=== PATIENT | female | born 1950 | race Caucasian/White ===

== ENCOUNTER 2018-07-17 19:58 | Emergency (ER) | payer MEDICARE ==
--- NOTE | 2018-07-17 20:21 | ERPHSYRPT ---
- History of Present Illness Time Seen by Provider: 07/17/18 20:20 Historian: patient Exam Limitations: no limitations Physician History: 68 y/o white female presents with vomiting and diarrhea for a week. pt is unsure why she has these sx. no fever. pt has a h/o nonhodgkins lymphoma with wbc in the range of 1.5. pt also takes magnesium and potassium supplements chronically. pt does not have abd pain. Timing/Duration: week(s) (1) Activities at Onset: none Quality: cramping (mild) Abdominal Pain Onset Location: generalized abdomen Pain Radiation: no radiation Severity of Pain-Max: mild Severity of Pain-Current: none Modifying Factors: Improves With: vomiting Associated Symptoms: diarrhea, loss of appetite, nausea, vomiting Previous symptoms: no prior history Allergies/Adverse Reactions: No Known Drug Allergies Allergy (Unverified 07/17/18 20:12) Home Medications: Carvedilol 1 tab PO BID 07/17/18 [History] Celecoxib 100 mg [celeBREX 100 MG] 1 tab PO DAILY 07/17/18 [History] Duloxetine HCl 1 tab PO DAILY 07/17/18 [History] Furosemide 20 mg [Lasix 20 mg] 1 tab PO BID 07/17/18 [History] Potassium Chloride [K-Dur] 1 tab PO BID 07/17/18 [History] Ropinirole HCl 0.5 mg [Requip 0.5 MG] 1 tab PO DAILY 07/17/18 [History] - Review of Systems Constitutional: No Symptoms Eyes: No Symptoms Ears, Nose, & Throat: No Symptoms Respiratory: No Symptoms Cardiac: No Symptoms Abdominal/Gastrointestinal: Nausea, Vomiting, Diarrhea, No Abdominal Pain Genitourinary Symptoms: No Symptoms Musculoskeletal: No Symptoms Skin: No Symptoms Neurological: No Symptoms Psychological: No Symptoms Endocrine: No Symptoms Hematologic/Lymphatic: No Symptoms Immunological/Allergic: No Symptoms All Other Systems: Reviewed and Negative - Nursing Vital Signs Nursing Vital Signs: Initial Vital Signs Temperature 97.8 F 07/17/18 20:13 Pulse Rate 98 H 07/17/18 20:13 Respiratory Rate 16 07/17/18 20:13 Blood Pressure 203/87 07/17/18 20:13 O2 Sat by Pulse Oximetry 95 07/17/18 20:13 Pain Scale Pain Intensity 0 - Course Nursing assessment & vital signs reviewed: Yes Ordered Tests: Active Orders 24 hr Category Date Time Status IV Insertion STAT Care 07/17/18 20:40 Active AMYLASE Stat Lab 07/17/18 20:45 Completed CBC W DIFF Stat Lab 07/17/18 20:45 Completed CMP Stat Lab 07/17/18 20:45 Completed LIPASE Stat Lab 07/17/18 20:45 Completed Lactic Acid Stat Lab 07/17/18 20:40 Completed UA W/RFX UR CULTURE Stat Lab 07/17/18 22:50 Completed Medication Summary Discontinued Medications Generic Name Dose Route Start Last Admin Trade Name Freq PRN Reason Stop Dose Admin Sodium Chloride 1,000 mls @ 999 mls/hr 07/17/18 20:40 07/17/18 21:53 Sodium Chloride 0.9% 1000 Ml IV 07/17/18 21:40 Infused .Q1H1M STA Infusion Sodium Chloride Confirm 07/17/18 20:45 Sodium Chloride 0.9% 1000 Ml Administered 07/17/18 20:46 Dose 1,000 mls @ ud .ROUTE .STK-MED ONE Sodium Chloride 1,000 mls @ 999 mls/hr 07/17/18 21:57 07/17/18 22:04 Sodium Chloride 0.9% 1000 Ml IV 07/17/18 22:57 999 mls/hr .Q1H1M STA Administration Sodium Chloride Confirm 07/17/18 22:03 Sodium Chloride 0.9% 1000 Ml Administered 07/17/18 22:04 Dose 1,000 mls @ ud .ROUTE .STK-MED ONE Ondansetron HCl 4 mg 07/17/18 20:40 07/17/18 20:51 Zofran 4 Mg/2 Ml Vial IV 07/17/18 20:41 4 mg STAT ONE Administration Ondansetron HCl Confirm 07/17/18 20:45 Zofran 4 Mg/2 Ml Vial Administered 07/17/18 20:46 Dose 4 mg .ROUTE .STK-MED ONE Pantoprazole Sodium 40 mg 07/17/18 20:40 07/17/18 20:51 Protonix 40 Mg Iv IV 07/17/18 20:41 40 mg STAT ONE Administration Pantoprazole Sodium Confirm 07/17/18 20:45 Protonix 40 Mg Iv Administered 07/17/18 20:46 Dose 40 mg IV .STK-MED ONE Lab/Rad Data: Laboratory Result Diagrams 07/17/18 20:45 07/17/18 20:45 Laboratory Results 07/17/18 07/17/18 07/17/18 Range/Units 22:50 20:45 20:45 WBC 2.2 L (4.0-10.5) K/mm3 RBC 4.17 (4.1-5.4) M/mm3 Hgb 12.5 (12.0-16.0) gm/dl Hct 37.8 (35-47) % MCV 90.6 (78-100) fl MCH 30.0 (26-32) pg MCHC 33.1 (32-36) g/dl RDW 14.6 H (11.5-14.0) % Plt Count 184 (150-450) K/mm3 MPV 9.3 (6-9.5) fl Gran % 52.5 (36.0-66.0) % Eos # (Auto) 0.05 (0-0.5) Absolute Lymphs (auto) 0.69 L (1.0-4.6) Absolute Monos (auto) 0.30 (0.0-1.3) Lymphocytes % 30.9 (24.0-44.0) % Monocytes % 13.5 H (0.0-12.0) % Eosinophils % 2.2 (0.00-5.0) % Basophils % 0.9 (0.0-0.4) % Absolute Granulocytes 1.17 L (1.4-6.9) Basophils # 0.02 (0-0.4) Sodium 139 (137-145) mmol/L Potassium 4.1 (3.5-5.1) mmol/L Chloride 106 (98-107) mmol/L Carbon Dioxide 20 L (22-30) mmol/L Anion Gap 16.4 H (5-15) MEQ/L BUN 22 H (7-17) mg/dL Creatinine 1.30 H (0.52-1.04) mg/dL Estimated GFR 43.6 ML/MIN Glucose 180 H (74-106) mg/dL Lactic Acid (0.4-2.0) Calcium 10.0 (8.4-10.2) mg/dL Total Bilirubin 1.10 (0.2-1.3) mg/dL AST 47 H (14-36) U/L ALT 26 (0-35) U/L Alkaline Phosphatase 151 H (38-126) U/L Serum Total Protein 9.2 H (6.3-8.2) g/dL Albumin 4.5 (3.5-5.0) g/dL Amylase 83 (30-110) U/L Lipase 378 H (23-300) U/L Urine Color YELLOW (YELLOW) Urine Appearance SLIGHTLY CLOUDY (CLEAR) Urine pH 5.0 (5-6) Ur Specific [place] 1.009 (1.005-1.025) Urine Protein NEGATIVE (Negative) Urine Ketones NEGATIVE (NEGATIVE) Urine Blood NEGATIVE (0-5) Luke/ul Urine Nitrite NEGATIVE (NEGATIVE) Urine Bilirubin NEGATIVE (NEGATIVE) Urine Urobilinogen NEGATIVE (0-1) mg/dL Ur Leukocyte Esterase NEGATIVE (NEGATIVE) Urine WBC (Auto) NONE (0-5) /HPF Urine RBC (Auto) NONE (0-2) /HPF U Hyaline Cast (Auto) 0-2 (0-2) /LPF U Epithel Cells (Auto) RARE (FEW) /HPF Urine Bacteria (Auto) NONE (NEGATIVE) /HPF Urine Mucus (Auto) SLIGHT (NEGATIVE) /HPF Urine Culture Reflexed NO (NO) Urine Glucose NEGATIVE (NEGATIVE) mg/dL 07/17/18 Range/Units 20:40 WBC (4.0-10.5) K/mm3 RBC (4.1-5.4) M/mm3 Hgb (12.0-16.0) gm/dl Hct (35-47) % MCV (78-100) fl MCH (26-32) pg MCHC (32-36) g/dl RDW (11.5-14.0) % Plt Count (150-450) K/mm3 MPV (6-9.5) fl Gran % (36.0-66.0) % Eos # (Auto) (0-0.5) Absolute Lymphs (auto) (1.0-4.6) Absolute Monos (auto) (0.0-1.3) Lymphocytes % (24.0-44.0) % Monocytes % (0.0-12.0) % Eosinophils % (0.00-5.0) % Basophils % (0.0-0.4) % Absolute Granulocytes (1.4-6.9) Basophils # (0-0.4) Sodium (137-145) mmol/L Potassium (3.5-5.1) mmol/L Chloride (98-107) mmol/L Carbon Dioxide (22-30) mmol/L Anion Gap (5-15) MEQ/L BUN (7-17) mg/dL Creatinine (0.52-1.04) mg/dL Estimated GFR ML/MIN Glucose (74-106) mg/dL Lactic Acid 1.1 (0.4-2.0) Calcium (8.4-10.2) mg/dL Total Bilirubin (0.2-1.3) mg/dL AST (14-36) U/L ALT (0-35) U/L Alkaline Phosphatase (38-126) U/L Serum Total Protein (6.3-8.2) g/dL Albumin (3.5-5.0) g/dL Amylase (30-110) U/L Lipase (23-300) U/L Urine Color (YELLOW) Urine Appearance (CLEAR) Urine pH (5-6) Ur Specific [place] (1.005-1.025) Urine Protein (Negative) Urine Ketones (NEGATIVE) Urine Blood (0-5) Luke/ul Urine Nitrite (NEGATIVE) Urine Bilirubin (NEGATIVE) Urine Urobilinogen (0-1) mg/dL Ur Leukocyte Esterase (NEGATIVE) Urine WBC (Auto) (0-5) /HPF Urine RBC (Auto) (0-2) /HPF U Hyaline Cast (Auto) (0-2) /LPF U Epithel Cells (Auto) (FEW) /HPF Urine Bacteria (Auto) (NEGATIVE) /HPF Urine Mucus (Auto) (NEGATIVE) /HPF Urine Culture Reflexed (NO) Urine Glucose (NEGATIVE) mg/dL - Progress Progress: improved, re-examined Progress Note: 07/17/18 22:23 pt states she is feeling much better. Counseled pt/family regarding: lab results, diagnosis, need for follow-up - Departure Departure Disposition: Home Clinical Impression: Vomiting and diarrhea, Dehydration Condition: Good Critical Care Time: No Referrals: CHEMA STARK [Primary Care Provider] - Additional Instructions: drink plenty of fluids. follow up with primary doctor for further management. Prescriptions: Ondansetron HCl [Zofran] 4 mg PO TID PRN #10 tablet PRN Reason: Nausea/Vomiting
[2018-07-17] MEDS ORDERED: PROTONIX 40 MG IV IV ONE ×2 (20:40→20:45)
[2018-07-17] MEDS ORDERED: Zofran 4 MG/2 ML VIAL IV ONE (20:40)
[2018-07-17] MEDS ORDERED: Sodium Chloride 0.9% 1000 ML 1,000 ML IV STA ×2 (20:40→21:57)
[2018-07-17] MEDS ORDERED: Zofran 4 MG/2 ML VIAL ONE (20:45)
[2018-07-17] MEDS ORDERED: Sodium Chloride 0.9% 1000 ML 1,000 ML ONE ×2 (20:45→22:03)
[2018-07-17 20:53] LABS: BASOPHIL % 0.9 % (0.0-0.4); Basophil (Absolute #) 0.02 (0-0.4); Eosinophil % 2.2 % (0.00-5.0); Eosinophil (Absolute #) 0.05 (0-0.5); Granulocyte Absolute (ANC) 1.17 (1.4-6.9); Granulocytes % 52.5 % (36.0-66.0); Hematocrit 37.8 % (35-47); Hemoglobin 12.5 gm/dl (12.0-16.0); Lymphocyte (Absolute #) 0.69 (1.0-4.6); Lymphocytes % 30.9 % (24.0-44.0); Mean Cell Volume 90.6 fl (78-100); Mean Corpuscular Hgb Concent. 33.1 g/dl (32-36); Mean Platelet Volume 9.3 fl (6-9.5); Monocytes % 13.5 % (0.0-12.0); Platelet Count 184 K/mm3 (150-450); Red Blood Count 4.17 M/mm3 (4.1-5.4); Red Cell Distribution Width 14.6 % (11.5-14.0); White Blood Count 2.2 K/mm3 (4.0-10.5)
[2018-07-17 21:04] LABS: ALBUMIN 4.5 g/dL (3.5-5.0); ANION GAP 16.4 MEQ/L (5-15); BILIRUBIN,TOTAL 1.1 mg/dL (0.2-1.3); Creatinine 1 1.3 mg/dL (0.52-1.04); Potassium 4.1 mmol/L (3.5-5.1); Total Protein 9.2 g/dL (6.3-8.2)
[2018-07-17 22:59] LABS: Appearance SLIGHTLY CLOUDY (CLEAR); Bilirubin NEGATIVE (NEGATIVE); Blood NEGATIVE Ery/ul (0-5); Epithelial Cells RARE /HPF (FEW); Glucose NEGATIVE (NEGATIVE); Hyaline Casts 0-2 /LPF (0-2); Ketones NEGATIVE (NEGATIVE); Leukocyte Esterase NEGATIVE (NEGATIVE); Mucus SLIGHT /HPF (NEGATIVE); Nitrite NEGATIVE (NEGATIVE); Protein,Urine Dip NEGATIVE (Negative); Specific Gravity 1.009 (1.005-1.025); Urobilinogen NEGATIVE mg/dL (0-1)
[2018-07-17 23:23] VITALS: PULSE 92; O2SAT 97
[2018-07-17 23:36] VITALS: BP 116/74
== END 2018-07-17 23:36 | disposition home or self-care (01) ==
LOC: ED 19:58
DX: R11.2 Nausea with vomiting, unspecified (principal); R19.7 Diarrhea, unspecified; E86.0 Dehydration
CPT/HCPCS: 36000; 36415; 80053; 81001; 82150; 83605; 83690; 85025; 96360; 96361; 96374; 96375; 99284; J2405

== ENCOUNTER 2019-12-10 13:55 | Emergency (ER) | payer MEDICARE ==
--- NOTE | 2019-12-10 14:34 | ERPHSYRPT ---
- History of Present Illness Time Seen by Provider: 12/10/19 14:00 Source: patient Exam Limitations: no limitations Physician History: Patient is a 69-year-old female presents to our ED with complaints of shortness of breath for approximately 3 to 4 weeks. Patient is aware that she is tachycardic. Patient states she has been tachycardic for the duration of time that she has had shortness of breath, 3 to 4 weeks. Patient was diagnosed with a pneumonia. Patient started on Z-Scooter and Levaquin. Patient followed up with her plant controller who advised her that symptoms are likely due to pulmonary and not cardiac. Patient has a history of hemolytic anemia. She receives IVIG treatments. She denies chest pain. No nausea or vomiting. No diaphoresis. No diarrhea. No rash. No fever. Symptoms are constant. Symptoms are moderate in intensity. No specific worsening or improving factors. However patient does state that she tends to feel a little more tired than normal performing activities of daily living. Patient voices no other complaints or concerns at this time. Timing/Duration: week(s) Severity: moderate Modifying Factors: Improves With: movement Associated Symptoms: shortness of breath, No nausea, No vomiting, No abdominal pain, No diaphoresis, No cough, No chills, No fever, No headaches, No loss of appetite, No malaise, No syncope, No seizure Allergies/Adverse Reactions: No Known Drug Allergies Allergy (Unverified 07/17/18 20:12) Home Medications: Duloxetine HCl 1 tab PO DAILY 07/17/18 [History] Furosemide 20 mg [Lasix 20 mg] 1 tab PO BID 07/17/18 [History] Potassium Chloride [K-Dur] 1 tab PO BID 07/17/18 [History] Ropinirole HCl 0.5 mg [Requip 0.5 MG] 1 tab PO DAILY 07/17/18 [History] carvediloL [Carvedilol] 1 tab PO BID 07/17/18 [History] Albuterol Sulfate [Proair Hfa] 1 each UD 12/10/19 [History] Ferrous Sulfate [Iron] 325 mg PO BID 12/10/19 [History] Fluticasone/Salmeterol 230/21 [Advair Hfa 230/21 Mcg COMMON CANISTER*] 1 each UD 12/10/19 [History] Folic Acid 1 mg PO DAILY 12/10/19 [History] Gabapentin 100 mg PO HS 12/10/19 [History] Levofloxacin [Levaquin] 500 mg PO DAILY 12/10/19 [History] Levothyroxine Sodium 100 Mcg [Synthroid 100 Mcg] 100 mcg PO DAILY 12/10/19 [History] Magnesium 500 mg PO BID 12/10/19 [History] Melatonin 5 mg PO HSPRN PRN 12/10/19 [History] Metformin HCl 500 mg [Glucophage 500 MG] 500 mg PO BIDWM 12/10/19 [Hi story] Montelukast Sodium 10 mg [Singulair 10 MG] 10 mg PO DAILY 12/10/19 [History] Oxybutynin Chloride [Oxybutynin Chloride ER] 10 mg PO DAILY 12/10/19 [History] Prednisone 10 mg [Deltasone 10 mg] 10 mg PO DAILY 12/10/19 [History] Ramipril [Altace] 10 mg PO HS 12/10/19 [History] Trazodone HCl 50 mg PO HSPRN PRN 12/10/19 [History] Hx Tetanus, Diphtheria Vaccination/Date Given: Yes Hx Influenza Vaccination/Date Given: Yes Hx Pneumococcal Vaccination/Date Given: Yes - Review of Systems Constitutional: No Symptoms, No Fever, No Chills Eyes: No Symptoms Ears, Nose, & Throat: No Symptoms Respiratory: Dyspnea, Dyspnea on Exertion (KINNEY), No Stridor, No Wheezing Cardiac: No Chest Pain, No Edema, No Syncope Abdominal/Gastrointestinal: No Abdominal Pain, No Nausea, No Vomiting, No Diarrhea Genitourinary Symptoms: No Dysuria Musculoskeletal: No Symptoms, No Back Pain, No Neck Pain Skin: No Symptoms, No Rash Neurological: No Symptoms, No Dizziness, No Focal Weakness, No Sensory Changes Psychological: No Symptoms Endocrine: No Symptoms All Other Systems: Reviewed and Negative - Past Medical History Pertinent Past Medical History: Yes Neurological History: No Pertinent History ENT History: No Pertinent History Cardiac History: Congenital Heart Disease, Hypertension, Other Respiratory History: Sleep Apnea Endocrine Medical History: Diabetes Type I Musculoskeletal History: Arthritis GI Medical History: No Pertinent History History: No Pertinent History Psycho-Social History: No Pertinent History Female Reproductive Disorders: No Pertinent History Other Medical History: non-hodgkins state 4 lymphoma, neutropenia, narcolepsy, a-fib - Past Surgical History Past Surgical History: Yes Cardiac: Internal Defibrillator, Pacemaker Gastrointestinal: No Pertinent History Musculoskeletal: No Pertinent History Female Surgical History: Other Other Surgical History: GI scopes, breast biopsies. - Social History Smoking Status: Never smoker Exposure to second hand smoke: No Drug Use: none Patient Lives Alone: No - Nursing Vital Signs Nursing Vital Signs: Initial Vital Signs Temperature 98.7 F 12/10/19 13:57 Pulse Rate 144 H 12/10/19 13:57 Respiratory Rate 20 12/10/19 13:57 Blood Pressure 137/71 12/10/19 13:57 O2 Sat by Pulse Oximetry 97 12/10/19 13:57 Pain Scale Pain Intensity 0 - Physical Exam General Appearance: no apparent distress, alert Eye Exam: PERRL/EOMI, eyes nml inspection Ears, Nose, Throat Exam: normal ENT inspection, TMs normal, pharynx normal, moist mucous membranes Neck Exam: normal inspection, non-tender, supple, full range of motion Respiratory Exam: normal breath sounds, lungs clear, No respiratory distress Cardiovascular Exam: normal heart sounds, normal peripheral pulses, tachycardia, other (Resting tachycardia.) Gastrointestinal/Abdomen Exam: soft, normal bowel sounds, No tenderness, No mass Back Exam: normal inspection, normal range of motion, No CVA tenderness, No vertebral tenderness Extremity Exam: normal inspection, normal range of motion, pelvis stable Neurologic Exam: alert, oriented x 3, cooperative, normal mood/affect, nml cer ebellar function, nml station & gait, sensation nml, No motor deficits Skin Exam: normal color, warm, dry, No rash Lymphatic Exam: No adenopathy SpO2 Interpretation: normal SpO2: 97 O2 Delivery: Room Air - Radiology Exams Chest X-ray Interpretation: Teleradiologist Report (Prominent central vascular prominence small bibasilar effusions fluid in the minor fissure and borderline cardiomegaly favoring cardiac decompensation.) Ordered Tests: Active Orders 24 hr Category Date Time Status Handy Man STAT Care 12/10/19 14:18 Active EKG-ER Only STAT Care 12/10/19 14:17 Active IV Insertion STAT Care 12/10/19 14:17 Active Pulse Oximetry (ED) STAT Care 12/10/19 14:17 Active CHEST 1 VIEW (PORTABLE) Stat Exams 12/10/19 14:18 Completed CHEST WITH CONTRAST [CT] Stat Exams 12/10/19 15:08 Completed CBC W DIFF Stat Lab 12/10/19 14:21 Completed CMP Stat Lab 12/10/19 14:21 Completed D-DIMER QUANTITATIVE Stat Lab 12/10/19 14:21 Completed Lactic Acid Stat Lab 12/10/19 14:43 Completed Lactic Acid Stat Lab 12/10/19 16:46 Received MAGNESIUM Stat Lab 12/10/19 14:21 Completed NT PRO BNP Stat Lab 12/10/19 14:21 Completed TROPONIN Q3H Lab 12/10/19 14:21 Completed TROPONIN Q3H Lab 12/10/19 17:30 Ordered TROPONIN Q3H Lab 12/10/19 20:30 Ordered TROPONIN Q3H Lab 12/10/19 23:30 Ordered TROPONIN Q3H Lab 12/11/19 02:30 Ordered TSH, 3RD Generation Stat Lab 12/10/19 14:21 Completed UA W/RFX UR CULTURE Stat Lab 12/10/19 15:03 Completed Medication Summary Generic Name Dose Route Start Last Admin Trade Name Freq PRN Reason Stop Dose Admin Magnesium Sulfate/Dextrose 100 mls @ 100 mls/hr 12/10/19 15:15 12/10/19 15:32 Magnesium 1 Gm / 100 Ml D5w IV 12/10/19 17:14 100 mls/hr Q1H JAY Administration Discontinued Medications Generic Name Dose Route Start Last Admin Trade Name Freq PRN Reason Stop Dose Admin Furosemide 40 mg 12/10/19 15:20 12/10/19 15:31 Lasix 40 Mg/4 Ml IV 12/10/19 15:21 40 mg STAT ONE Administration Furosemide Confirm 12/10/19 15:30 Lasix 40 Mg/4 Ml Administered 12/10/19 15:31 Dose 40 mg .ROUTE .STK-MED ONE Lab/Rad Data: Laboratory Result Diagrams 12/10/19 14:21 12/10/19 14:21 Laboratory Results 12/10/19 12/10/19 12/10/19 Range/Units 15:47 15:03 14:43 WBC (4.0-10.5) K/mm3 RBC (4.1-5.4) M/mm3 Hgb (12.0-16.0) gm/dl Hct (35-47) % MCV (78-100) fl MCH (26-32) pg MCHC (32-36) g/dl RDW (11.5-14.0) % Plt Count (150-450) K/mm3 MPV (7.5-11.0) fl Gran % (36.0-66.0) % Eos # (Auto) (0-0.5) Absolute Lymphs (auto) (1.0-4.6) Absolute Monos (auto) (0.0-1.3) Lymphocytes % (24.0-44.0) % Monocytes % (0.0-12.0) % Eosinophils % (0.00-5.0) % Basophils % (0.0-0.4) % Absolute Granulocytes (1.4-6.9) Basophils # (0-0.4) D-Dimer (215-500) ng/mL Sodium (137-145) mmol/L Potassium (3.5-5.1) mmol/L Chloride (98-107) mmol/L Carbon Dioxide (22-30) mmol/L Anion Gap (5-15) MEQ/L BUN (7-17) mg/dL Creatinine (0.52-1.04) mg/dL Estimated GFR ML/MIN Glucose (74-106) mg/dL Lactic Acid 2.0 (0.4-2.0) Calcium (8.4-10.2) mg/dL Magnesium (1.6-2.3) mg/dL Total Bilirubin (0.2-1.3) mg/dL AST (14-36) U/L ALT (0-35) U/L Alkaline Phosphatase (38-126) U/L Troponin I (0.000-0.034) ng/mL NT-Pro-B Natriuret Pep (0-900) pg/mL Serum Total Protein (6.3-8.2) g/dL Albumin (3.5-5.0) g/dL TSH 3rd Generation (0.47-4.68) mIU/L Urine Color STRAW (YELLOW) Urine Appearance CLEAR (CLEAR) Urine pH 5.0 (5-6) Ur Specific [place] 1.004 (1.005-1.025) Urine Protein NEGATIVE (Negative) Urine Ketones NEGATIVE (NEGATIVE) Urine Blood NEGATIVE (0-5) Luke/ul Urine Nitrite NEGATIVE (NEGATIVE) Urine Bilirubin NEGATIVE (NEGATIVE) Urine Urobilinogen NEGATIVE (0-1) mg/dL Ur Leukocyte Esterase NEGATIVE (NEGATIVE) Urine WBC (Auto) NONE (0-5) /HPF Urine RBC (Auto) NONE (0-2) /HPF U Epithel Cells (Auto) NONE (FEW) /HPF Urine Bacteria (Auto) NONE (NEGATIVE) /HPF Urine Culture Reflexed NO (NO) Urine Glucose NEGATIVE (NEGATIVE) mg/dL Antibody Screen POSITIVE (NEGATIVE) 12/10/19 12/10/19 12/10/19 Range/Units 14:21 14:21 14:21 WBC (4.0-10.5) K/mm3 RBC (4.1-5.4) M/mm3 Hgb (12.0-16.0) gm/dl Hct (35-47) % MCV (78-100) fl MCH (26-32) pg MCHC (32-36) g/dl RDW (11.5-14.0) % Plt Count (150-450) K/mm3 MPV (7.5-11.0) fl Gran % (36.0-66.0) % Eos # (Auto) (0-0.5) Absolute Lymphs (auto) (1.0-4.6) Absolute Monos (auto) (0.0-1.3) Lymphocytes % (24.0-44.0) % Monocytes % (0.0-12.0) % Eosinophils % (0.00-5.0) % Basophils % (0.0-0.4) % Absolute Granulocytes (1.4-6.9) Basophils # (0-0.4) D-Dimer 1373 H* (215-500) ng/mL Sodium (137-145) mmol/L Potassium (3.5-5.1) mmol/L Chloride (98-107) mmol/L Carbon Dioxide (22-30) mmol/L Anion Gap (5-15) MEQ/L BUN (7-17) mg/dL Creatinine (0.52-1.04) mg/dL Estimated GFR ML/MIN Glucose (74-106) mg/dL Lactic Acid (0.4-2.0) Calcium (8.4-10.2) mg/dL Magnesium (1.6-2.3) mg/dL Total Bilirubin (0.2-1.3) mg/dL AST (14-36) U/L ALT (0-35) U/L Alkaline Phosphatase (38-126) U/L Troponin I < 0.012 (0.000-0.034) ng/mL NT-Pro-B Natriuret Pep (0-900) pg/mL Serum Total Protein (6.3-8.2) g/dL Albumin (3.5-5.0) g/dL TSH 3rd Generation 3.890 (0.47-4.68) mIU/L Urine Color (YELLOW) Urine Appearance (CLEAR) Urine pH (5-6) Ur Specific [place] (1.005-1.025) Urine Protein (Negative) Urine Ketones (NEGATIVE) Urine Blood (0-5) Luke/ul Urine Nitrite (NEGATIVE) Urine Bilirubin (NEGATIVE) Urine Urobilinogen (0-1) mg/dL Ur Leukocyte Esterase (NEGATIVE) Urine WBC (Auto) (0-5) /HPF Urine RBC (Auto) (0-2) /HPF U Epithel Cells (Auto) (FEW) /HPF Urine Bacteria (Auto) (NEGATIVE) /HPF Urine Culture Reflexed (NO) Urine Glucose (NEGATIVE) mg/dL Antibody Screen (NEGATIVE) 12/10/19 12/10/19 Range/Units 14:21 14:21 WBC 3.0 L (4.0-10.5) K/mm3 RBC 2.08 L (4.1-5.4) M/mm3 Hgb 7.1 L (12.0-16.0) gm/dl Hct 23.2 L (35-47) % MCV 111.5 H (78-100) fl MCH 34.1 H (26-32) pg MCHC 30.6 L (32-36) g/dl RDW 15.7 H (11.5-14.0) % Plt Count 199 (150-450) K/mm3 MPV 9.4 (7.5-11.0) fl Gran % 86.1 H (36.0-66.0) % Eos # (Auto) 0.02 (0-0.5) Absolute Lymphs (auto) 0.23 L (1.0-4.6) Absolute Monos (auto) 0.15 (0.0-1.3) Lymphocytes % 7.8 L (24.0-44.0) % Monocytes % 5.1 (0.0-12.0) % Eosinophils % 0.7 (0.00-5.0) % Basophils % 0.3 (0.0-0.4) % Absolute Granulocytes 2.54 (1.4-6.9) Basophils # 0.01 (0-0.4) D-Dimer (215-500) ng/mL Sodium 140 (137-145) mmol/L Potassium 4.2 (3.5-5.1) mmol/L Chloride 102 (98-107) mmol/L Carbon Dioxide 28 (22-30) mmol/L Anion Gap 14.0 (5-15) MEQ/L BUN 20 H (7-17) mg/dL Creatinine 1.11 H (0.52-1.04) mg/dL Estimated GFR 52.1 ML/MIN Glucose 221 H (74-106) mg/dL Lactic Acid (0.4-2.0) Calcium 8.9 (8.4-10.2) mg/dL Magnesium 1.4 L (1.6-2.3) mg/dL Total Bilirubin 2.30 H (0.2-1.3) mg/dL AST 34 (14-36) U/L ALT 21 (0-35) U/L Alkaline Phosphatase 172 H (38-126) U/L Troponin I (0.000-0.034) ng/mL NT-Pro-B Natriuret Pep 1940 H (0-900) pg/mL Serum Total Protein 8.6 H (6.3-8.2) g/dL Albumin 4.1 (3.5-5.0) g/dL TSH 3rd Generation (0.47-4.68) mIU/L Urine Color (YELLOW) Urine Appearance (CLEAR) Urine pH (5-6) Ur Specific [place] (1.005-1.025) Urine Protein (Negative) Urine Ketones (NEGATIVE) Urine Blood (0-5) Luke/ul Urine Nitrite (NEGATIVE) Urine Bilirubin (NEGATIVE) Urine Urobilinogen (0-1) mg/dL Ur Leukocyte Esterase (NEGATIVE) Urine WBC (Auto) (0-5) /HPF Urine RBC (Auto) (0-2) /HPF U Epithel Cells (Auto) (FEW) /HPF Urine Bacteria (Auto) (NEGATIVE) /HPF Urine Culture Reflexed (NO) Urine Glucose (NEGATIVE) mg/dL Antibody Screen (NEGATIVE) - Progress Progress: improved Progress Note: Your lung nodules will require further work-up and follow-up. Patient reassessed. Heart rate down to 130. Unclear cause of tachycardia. Possible symptomatic anemia. Patient will require transfusion. In light of patient's history of non-Hodgkin's lymphoma and hemolytic anemia requiring IVIG we will transfer patient to [facility] which is where she receives her care from her oncologist Dr. Summers. Chest x-ray shows possible congestive heart failure/decompensation. Lasix administered. Type and screen completed. Magnesium 1.4. Magnesium infused. The lymph node will require follow-up. No dina will need follow-up. Case discussed with Dr. Bonilla, ER doctor at [facility] who accepts transfer. 12/10/19 17:37 12/10/19 17:39 Counseled pt/family regarding: lab results, diagnosis, need for follow-up, rad results - Departure Departure Disposition: Transfer Clinical Impression: Lung nodule, Leukopenia, Megaloblastic anemia, Hyperglycemia, Hypomagnesemia, Elevated brain natriuretic peptide (BNP) level, Cirrhosis of liver, Splenomegaly, LAD (lymphadenopathy), hilar Condition: Stable Critical Care Time: No Referrals: LAMAR WAYNE FNP [Primary Care Provider] - Instructions: Heart Failure
[2019-12-10 14:43] LABS: Absolute Neutrophil Ct (ANC) 2.54 (1.4-6.9); BASOPHIL % 0.3 % (0.0-0.4); Basophil (Absolute #) 0.01 (0-0.4); Eosinophil % 0.7 % (0.00-5.0); Eosinophil (Absolute #) 0.02 (0-0.5); Hematocrit 23.2 % (35-47); Hemoglobin 7.1 gm/dl (12.0-16.0); Lymphocyte (Absolute #) 0.23 (1.0-4.6); Lymphocytes % 7.8 % (24.0-44.0); Mean Cell Volume 111.5 fl (78-100); Mean Corpuscular Hemoglobin 34.1 pg (26-32); Mean Corpuscular Hgb Concent. 30.6 g/dl (32-36); Mean Platelet Volume 9.4 fl (7.5-11.0); Monocyte (Absolute #) 0.15 (0.0-1.3); Monocytes % 5.1 % (0.0-12.0); Neutrophil % 86.1 % (36.0-66.0); Platelet Count 199 K/mm3 (150-450); Red Blood Count 2.08 M/mm3 (4.1-5.4); Red Cell Distribution Width 15.7 % (11.5-14.0)
[2019-12-10 15:03] LABS: ALBUMIN 4.1 g/dL (3.5-5.0); BILIRUBIN,TOTAL 2.3 mg/dL (0.2-1.3); Calcium 8.9 mg/dL (8.4-10.2); Creatinine 1 1.11 mg/dL (0.52-1.04); MAGNESIUM 1.4 mg/dL (1.6-2.3); Potassium 4.2 mmol/L (3.5-5.1); Total Protein 8.6 g/dL (6.3-8.2)
--- NOTE | 2019-12-10 15:04 | XRAY ---
Indication: Short of breath. Tachycardia. Comparison: November 30, 2019. Portable chest again demonstrates prominent central vascular prominence, small bibasilar effusions, fluid minor fissure, and borderline cardiomegaly again favoring cardiac decompensation. Superimposed pneumonia not completely excluded. Stable left AICD and right Port-A-Cath.
[2019-12-10] MEDS ORDERED: Lasix 40 MG/4 ML IV ONE (15:20)
[2019-12-10 15:22] LABS: Appearance CLEAR (CLEAR); Bilirubin NEGATIVE (NEGATIVE); Blood NEGATIVE Ery/ul (0-5); Glucose NEGATIVE (NEGATIVE); Ketones NEGATIVE (NEGATIVE); Leukocyte Esterase NEGATIVE (NEGATIVE); Nitrite NEGATIVE (NEGATIVE); Protein,Urine Dip NEGATIVE (Negative); Specific Gravity 1.004 (1.005-1.025); Urobilinogen NEGATIVE mg/dL (0-1)
[2019-12-10] MEDS ORDERED: Magnesium 1 Gm / 100 Ml D5W*** 100 ML IV ONE ×2 (15:30→17:57)
[2019-12-10] MEDS ORDERED: Lasix 40 MG/4 ML ONE (15:30)
[2019-12-10] MEDS: Magnesium 1 Gm / 100 Ml D5W*** 100 ML IV SCH ×2 (15:32→17:57)
--- NOTE | 2019-12-10 16:36 | XRAY ---
Indication: Short of breath 3 weeks. Pneumonia. Elevated d-dimer. Multiple contiguous images obtained through the chest using 80 cc Isovue-370 contrast and PE protocol. Comparison: None There is good opacification of the pulmonary arteries to include the lobar and segmental branches. No pulmonary embolus. Heart is enlarged with left-sided AICD. Aorta is normal in course and caliber. 1.5 x 2.6 cm prominent subcarinal and 1.9 x 3.5 cm right suprahilar prominence adenopathy. Lungs demonstrate minimal bilateral dependent atelectasis and minimal peripheral right lung fibrosis/scarring. Superior segment right lower lobe demonstrates small 2 cm focus of irregular airspace opacity with tiny effusion. 1 cm right middle lobe and 5 mm left lower lobe indeterminant noncalcified nodules. There is right minor/major fissure thickening. Bony thorax intact with mild degenerative changes throughout the spine. Limited upper abdomen demonstrates cirrhotic liver and 17 cm splenomegaly. Impression: 1. Negative pulmonary embolus. 2. Small focus right lower lobe patchy airspace disease with tiny effusion. 3. Small right middle and tiny left lower lobe indeterminant noncalcified nodules. Outside comparison studies recommended if available. If not, follow-up per Fleischner guidelines recommended. 4. Right hilar and subcarinal adenopathy presumed reactive. 5. Cardiomegaly without CHF. 6. Cirrhotic liver and splenomegaly.
[2019-12-10 16:46] LABS: Antibody Screen POSITIVE (NEGATIVE)
[2019-12-10 16:51] VITALS: BP 127/99; PULSE 138
[2019-12-10 17:20] VITALS: O2SAT 97
[2019-12-10 17:58] LABS: Slide Review 1 YES
[2019-12-14 12:50] LABS: AB ID Interp Indeterminate
== END 2019-12-10 18:29 | disposition short-term general hospital (02) ==
LOC: ED 13:55
DX: R91.1 Solitary pulmonary nodule (principal); D72.819 Decreased white blood cell count, unspecified; D64.89 Other specified anemias; E83.42 Hypomagnesemia; R79.89 Other specified abnormal findings of blood chemistry; K74.60 Unspecified cirrhosis of liver; R16.1 Splenomegaly, not elsewhere classified; R59.1 Generalized enlarged lymph nodes; Z79.899 Other long term (current) drug therapy; E10.65 Type 1 diabetes mellitus with hyperglycemia
CPT/HCPCS: 36000; 36415; 71045; 71260; 80053; 81001; 83605; 83735; 83880; 84443; 84484; 85025; 85379; 86850; 86870; 86900; 86901; 93005; 93041; 94760; 96365; 96366; 96374; 96375; 99285; J1940; J3475